=== PATIENT | male | born 1960 ===

== ENCOUNTER 2022-02-01 11:35 | Emergency (ER) | payer SELFPAY ==
[~2022-02-01] VITALS: Ht 180.3 cm; Wt 56.8 kg
[2022-02-01 12:44] LABS: BASOPHILS % (AUTO) 0.5 % (0.0-2.0); EOSINOPHILS % (AUTO) 0.1 % (1.0-6.0); HEMATOCRIT 46.6 % (41-53); HEMOGLOBIN 16.1 g/dL (13.5-17.5); LYMPHOCYTES # (AUTO) 0.6 K/uL (1.0-4.8); LYMPHOCYTES % (AUTO) 9.8 % (22.0-44.0); MEAN CORPUSCULAR HEMOGLOBIN 34.2 pg (26.0-34.0); MEAN CORPUSCULAR HGB CONC 34.5 G/dL (31.0-37.0); MEAN CORPUSCULAR VOLUME 99 fL (80-100); MONOCYTES # (AUTO) 0.5 K/uL (0.1-1.0); MONOCYTES % (AUTO) 7.7 % (2.0-9.0); NEUTROPHILS # (AUTO) 5.4 K/uL (1.8-7.7); NEUTROPHILS % (AUTO) 81.9 % (40.0-70.0); RED CELL DISTRIBUTION WIDTH 16.3 % (11.5-14.5)
[2022-02-01 12:50] LABS: ANION GAP 15 mmol/L (8-16); CALCIUM, TOTAL 8.8 mg/dL (8.8-10.5); CARBON DIOXIDE 26 mmol/L (22-29); CHLORIDE 96 mmol/L (98-107); CREATININE 0.67 mg/dL (0.60-1.30); GLOMERULAR FILTR. RATE CALC > 60 mL/min (>60); GLUCOSE,RANDOM 105 mg/dL (70-110); POTASSIUM 3.9 mmol/L (3.5-5.1); SODIUM SERUM 137 mmol/L (136-145); UREA NITROGEN, BLOOD 5 mg/dL (7-18)
[2022-02-01 12:52] LABS: INR 0.9 (0.9-1.1)
[2022-02-01 12:56] LABS: B-TYPE NATRIURETIC PEPTIDE 9 pg/mL (0-100)
[2022-02-01] MEDS ORDERED: SODIUM CHLORIDE 0.9% 1,000 ML IV ONE (13:00)
[2022-02-01] MEDS ORDERED: ONDANSETRON HCL 4 MG/2 ML VIAL IVP ONE (13:00)
[2022-02-01 13:04] LABS: PLATELET COUNT (AUTO) 99 K/uL (150-450)
[2022-02-01 13:07] LABS: ALANINE AMINOTRANSFERASE 214 U/L (12-78); ALKALINE PHOSPHATASE 234 U/L (46-116); ASPARTATE AMINOTRANSFERASE 393 U/L (15-37); BILIRUBIN,TOTAL 0.7 mg/dL (0.1-1.0); CREATINE KINASE, TOTAL ONLY 99 U/L (39-308); TOTAL PROTEIN, SERUM 6.1 g/dL (6.4-8.2)
[2022-02-01 14:25] LABS: APPEARANCE,URINE CLEAR (CLEAR); BILIRUBIN,URINE NEGATIVE (NEGATIVE); GLUCOSE, URINE (UA) NEGATIVE (NEGATIVE); KETONES,URINE 40-60 mg/dL (NEGATIVE); LEUKOCYTE ESTERASE ,URINE NEGATIVE (NEGATIVE); NITRATE,URINE NEGATIVE (NEGATIVE); OCCULT BLOOD,URINE NEGATIVE (NEGATIVE); PH,URINE 5.5 (5.0-8.0); PROTEIN,URINE NEGATIVE (NEGATIVE); SPECIFIC GRAVITIY, URINE 1.016 (1.003-1.030); UROBILINOGEN,URINE <=1.0 mg/dL (<=1.0)
[2022-02-01 16:21] VITALS: BP 129/72
== END 2022-02-01 19:01 | disposition home or self-care (01) ==
LOC: EMS 11:37
DX: R42 Dizziness and giddiness (principal); E86.0 Dehydration
CPT/HCPCS: 99285; 96374; 70450; 71045; 96361; 80053; 81003; 82550; 83880; 84484; 85025; 85610; 85730; 36415; 93005; J2405; J7030